=== PATIENT | male | born 1980 | race Caucasian/White ===

== ENCOUNTER 2018-07-04 11:00 | Day surgery (SDC) | payer OTHER ==
[~2018-07-04] VITALS: Ht 180.3 cm; Wt 134.6 kg
[~2018-07-04 11:00] MED LIST: CEFAZOLIN 1,000 MG ONE; DEXAMETHASONE 4 MG/ML, 1ML ONE; KETOROLAC 30 MG/1 ML ONE; ONDANSETRON 2MG/ML, 2ML ONE; PROPOFOL 10 MG/ML, 20ML ONE; PROPOFOL 10 MG/ML, 50ML ONE; ROCURONIUM 10 MG/ML,10ML ONE; SUCCINYLCHOLINE 20 MG/ML, 10ML ONE
[2018-07-04] MEDS ORDERED: SODIUM CHLORIDE FLUSH 10ML SYR IVF ONE (11:30)
[2018-07-04] MEDS ORDERED: ONDANSETRON 2MG/ML, 2ML IVPush ONE (11:30)
[2018-07-04] MEDS ORDERED: HYDROmorphone 2 MG/ML, 1ML IVPush PRN (11:30)
[2018-07-04] MEDS ORDERED: ONDANSETRON 2MG/ML, 2ML ONE ×2 (11:50→16:08)
[2018-07-04] MEDS ORDERED: HYDROmorphone 1 MG/ML, 1ML ONE (11:50)
[2018-07-04] MEDS ORDERED: AMLO10TA8 PO (12:00)
[2018-07-04 12:01] LABS: BASOPHILS # (AUTO) 0.06 x10^3/uL (0-0.1); BASOPHILS % (AUTO) 0 % (0-1); EOSINOPHILS # (AUTO) 0.09 x10^3/uL (0-0.4); EOSINOPHILS % (AUTO) 1 % (1-7); LYMPHOCYTES # (AUTO) 1.49 x10^3/uL (1-3.4); LYMPHOCYTES % (AUTO) 8 % (22-44); MD NO; MEAN CORPUSCULAR HEMOGLOBIN 28.2 pg (27.5-34.5); MEAN CORPUSCULAR HGB CONC 34.3 g/dL (33.2-36.2); MEAN CORPUSCULAR VOLUME 82.3 fL (81-97); MEAN PLATELET VOLUME 7.5 fL (7.4-10.4); MONOCYTES % (AUTO) 5 % (2-9); NEUTROPHILS # (AUTO) 15.53 x10^3/uL (1.8-6.8); NEUTROPHILS % (AUTO) 86 % (42-75); PLATELET COUNT 311 x10^3/uL (130-400); RED BLOOD COUNT 5.78 x10^6/uL (4.38-5.82); RED CELL DISTRIBUTION WIDTH 13.1 % (9.4-14.8)
[2018-07-04] MEDS ORDERED: METF500T27 PO (12:02)
[2018-07-04] MEDS ORDERED: DULA1.5P SQ (12:04)
[2018-07-04] MEDS ORDERED: AMLO1TAB99 PO (12:04)
--- NOTE | 2018-07-04 12:07 | NUR ---
AFTER MEDICATED FOR PAIN PT AMBULATED STEADY GAIT WITH TO BATHROOM TO PROVIDE URINE SAMPLE.
[2018-07-04 12:11] LABS: ALBUMIN 3.8 g/dL (3.4-5.0); ANION GAP 6 mmol/L (5-15); CALCIUM 8.5 mg/dL (8.5-10.1); CHLORIDE 102 mmol/L (98-107)
[2018-07-04 12:14] LABS: ALANINE AMINOTRANSFERASE 36 U/L (12-78); ALKALINE PHOSPHATASE 70 U/L (45-117); BILIRUBIN,TOTAL 0.6 mg/dL (0.2-1.0); CREATININE 0.75 mg/dL (0.7-1.3); TOTAL PROTEIN 7.3 g/dL (6.4-8.2)
[2018-07-04 12:25] LABS: MICROSCOPIC AUTO
[2018-07-04 12:26] LABS: CULTURE INDICATED? NO
[2018-07-04] MEDS ORDERED: OMNIPAQUE 350 MG/ML, 100ML BOTTLE ONE (12:47)
--- NOTE | 2018-07-04 12:48 | NUR ---
CT COMPLETED. PT STATES THAT PAIN INITIALLY WENT DOWN TO 3/10 AFTER MEDICATED BUT THAT IT IS COMING BACK UP.
--- NOTE | 2018-07-04 14:53 | NUR ---
TASK RN: PT REPORTS IMRPOVEMENT IN PAIN. PT RESTING AT THIS TIME.
--- NOTE | 2018-07-04 14:56 | NUR ---
TASK RN: PTS SPO2 DESATURATED AFTER MEDICATION. PT PLACED ON SPO2 3L NC.
[2018-07-04 14:57] VITALS: BP 132/84
[2018-07-04] MEDS ORDERED: BUPIVACAINE/PF-EPI 0.5% 1:200K ONE (15:25)
[2018-07-04] MEDS ORDERED: CEFOTETAN PMX 1GM/50ML 50 ML IV ONE (15:30)
[2018-07-04] MEDS ORDERED: SODIUM CHLORIDE FLUSH 10ML SYR IVF PRN (15:30)
[2018-07-04] MEDS ORDERED: FENTANYL PF 250 MCG/5ML ONE (15:52)
[2018-07-04] MEDS ORDERED: MIDAZOLAM 1 MG/ML, 2ML ONE (15:52)
[2018-07-04] MEDS ORDERED: PROPOFOL 10 MG/ML, 20ML ONE (16:08)
[2018-07-04] MEDS ORDERED: GLYCOPYRROLATE 0.2MG/1ML, 5ML ONE (16:08)
[2018-07-04] MEDS ORDERED: NEOSTIGMINE 1 MG/ML, 10ML ONE (16:08)
[2018-07-04] MEDS ORDERED: ROCURONIUM 10 MG/ML,10ML ONE (16:08)
[2018-07-04] MEDS ORDERED: DEXAMETHASONE 4 MG/ML, 1ML ONE (16:08)
[2018-07-04] MEDS ORDERED: KETOROLAC 30 MG/1 ML ONE (16:08)
[2018-07-04] MEDS ORDERED: CEFAZOLIN 1,000 MG ONE (16:08)
[2018-07-04] MEDS ORDERED: MEPERIDINE/PF 25MG/0.5ML IVPush PRN (17:00)
[2018-07-04] MEDS ORDERED: PROMETHAZINE 25 MG/ML, 1ML IV PRN (17:00)
[2018-07-04] MEDS ORDERED: KETOROLAC 30 MG/1 ML IV PRN (17:00)
[2018-07-04] MEDS ORDERED: ALBUTEROL SULFATE 2.5 MG/3 ML NPPB PRN (17:00)
[2018-07-04] MEDS ORDERED: LABETALOL 5MG/ML, 20ML IV PRN (17:00)
[2018-07-04] MEDS ORDERED: FENTANYL PF 100 MCG/2ML IV PRN (17:00)
[2018-07-04] MEDS ORDERED: HYDROmorphone 1 MG/ML, 1ML IV PRN (17:00)
[2018-07-04] MEDS ORDERED: OXYcodone 5 MG/5 ML ORAL.SOL UDC PO PRN (17:00)
[2018-07-04] MEDS ORDERED: METOCLOPRAMIDE 5 MG/ML, 2ML IV PRN (17:00)
[2018-07-04] MEDS ORDERED: hydrALAzine 20 MG/ML, 1ML IV PRN (17:00)
[2018-07-04] MEDS ORDERED: ONDANSETRON 2MG/ML, 2ML IVPush PRN (17:00)
[2018-07-04] MEDS ORDERED: OXYcodone 5 MG/5 ML ORAL.SOL UDC ONE (17:07)
== END 2018-07-05 04:53 | disposition home or self-care (01) ==
LOC: ED 13:38 → UNDOADMIN 15:21 → EDIP 15:21 → SDC 17:00
PROVIDERS: ATTEND Surgery
DX: K80.12 Calculus of gallbladder with acute and chronic cholecystitis without obstruction (principal); E11.9 Type 2 diabetes mellitus without complications; I10 Essential (primary) hypertension; E78.5 Hyperlipidemia, unspecified; E66.9 Obesity, unspecified; Z68.42 Body mass index [BMI] 45.0-49.9, adult; Z79.84 Long term (current) use of oral hypoglycemic drugs
CPT/HCPCS: 36415; 47562; 74177; 76700; 80053; 81001; 83605; 83690; 85025; 88304; 96374; 96375; 99285; C1760; J0330; J0690; J1100; J1170; J1885; J2250; J2405; J2704; J2710; J3010; J3490; Q9967